=== PATIENT | female | born 1995 | race Caucasian/White ===

== ENCOUNTER 2025-09-14 12:48 | Emergency (ER) | payer BC ==
[~2025-09-14] VITALS: Ht 172.7 cm; Wt 63.5 kg
[2025-09-14] MEDS: ORPHENADRINE 60MG/2ML IM ONE (13:00)
--- NOTE | 2025-09-14 14:13 | HMCIMG ---
EXAM: CR Cervical spine, 4 View. CLINICAL HISTORY: FALL COMPARISON: None provided. FINDINGS: BONES: No acute fracture or aggressive appearing osseous lesion. DISCS/DEGENERATIVE CHANGES: The disc spaces are preserved. Posterior vertebral body alignment is within normal limits. SOFT TISSUES: No prevertebral soft tissue swelling. The visualized lung apices are clear. IMPRESSION: No acute cervical spine abnormality. /Folcroft
[2025-09-14 14:30] VITALS: BP 110/79; PULSE 66; RESP 17; TEMP 98.4; O2SAT 99
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
--- NOTE | 2025-09-14 15:19 | HMCIMG ---
Examination: Ultrasound examination of the abdomen/abdominal wall, limited Clinical history: Pain Comparison: None Findings: Grayscale and ultrasound images of the right lower, left lower, and periumbilical area demonstrate no sonographic abnormality. Please note that the appendix was not adequately visualized for characterization; and if there is concern for acute appendicitis contrast-enhanced CT imaging of the abdomen and pelvis is recommended. IMPRESSION: 1. No acute sonographic abnormality in the right lower, left lower, and periumbilical area. /Ferron
--- NOTE | 2025-09-14 15:21 | NUR ---
Pt opted to wait for results of x ray and sono before taking pain medication, once results were given she refused medication.
== END 2025-09-14 15:32 | disposition home or self-care (01) ==
LOC: EDH 12:48
DX: S16.1XXA Strain of muscle, fascia and tendon at neck level, initial encounter (principal); X58.XXXA Exposure to other specified factors, initial encounter; Y93.89 Activity, other specified; Y92.89 Other specified places as the place of occurrence of the external cause; Y99.8 Other external cause status
CPT/HCPCS: 72040; 76705; 99284; J1885; J2360